=== PATIENT | male | born 1940 | race African-American/Black ===

== ENCOUNTER 2017-07-29 10:48 | Emergency (ER) | payer MEDICARE ==
[2017-07-29 11:45] LABS: PTT 33.1 SEC (22.9-36.1); Prothrombin Time 15.2 SEC (12.0-14.7)
[2017-07-29 11:58] LABS: ALT (SGPT) 27 U/L (8-55); AST (SGOT) 31 U/L (5-34); Alkaline Phosphatase 60 U/L (40-150); Anion Gap 15 mmol/L (10-20); BUN (Urea Nitrogen) 36 mg/dL (8.4-25.7); Bilirubin, Total 2.1 mg/dL (0.2-1.2); Calc. Creatinine Clearance 0 mL/min (70-130); Calcium 11.3 mg/dL (7.8-10.44); Carbon Dioxide 28 mmol/L (23-31); Chloride 98 mmol/L (98-107); Estimated GFR-MDRD 65; Magnesium 2.1 mg/dL (1.6-2.6); Protein, Total 8.5 g/dL (5.8-8.1)
[2017-07-29 12:00] LABS: Troponin I Less than 0.010 ng/mL (< 0.028)
[2017-07-29 12:09] LABS: Band 1 % (5-11); Hematocrit 48.5 % (42.0-52.0); Mean Platelet Volume 9.3 fL (7.4-10.4); Neutrophil 79 % (42-75); Reactive Lymphocytes 1 % (0-10); Red Blood Cell (RBC) Count 5.06 mill/uL (4.70-6.10)
--- NOTE | 2017-07-29 12:15 | RAD ---
PORTABLE CHEST: 07/29/2017 PROVIDED CLINICAL HISTORY: Cough and weakness. COMPARISON: 02/14/2016 FINDINGS: The cardiac and mediastinal silhouette is unchanged in appearance. Changes of chronic obstructive d isease are redemonstrated. Superimposed prominence of the pulmonary interstitium, as well as bibasi lar air space disease cannot be excluded. No pleural fluid or pneumothorax is apparent. IMPRESSION: Changes of chronic obstructive disease are redemonstrated with possible bibasilar air space disease. Please correlate with concerns for pneumonia. Followup is recommended. POS: OFF
[2017-07-29] MEDS ORDERED: cefTRIAXone\\ROCEPHIN 500 MG VIAL ONE (13:27)
[2017-07-29] MEDS ORDERED: Azithromycin 500 MG in Sodium Chloride 0.9% 250 ML 250 ML IVPB SCH (13:45)
--- NOTE | 2017-07-29 16:26 | CON ---
EMERGENCY ROOM CONSULTATION NOTE DATE OF CONSULTATION: 07/29/2017 PRIMARY CARE PHYSICIAN: Marci Perez. CHIEF COMPLAINT: Cough and weakness. REASON FOR CONSULTATION: I was called to admit the patient to the hospital for pneumonia and uncontrolled atrial fibrillation. The patient is refusing admission now and is signing out against medical advice. The ER doctor is providing him with oral prescriptions and both he and I have reassured the patient that should he change his mind, he can return and we will admit him to the hospital for IV antibiotics and appropriate treatment. HISTORY OF PRESENT ILLNESS: This is a 77-year-old -Scottish male who lives by himself with a past medical history of longstanding tobacco abuse and COPD/emphysema who had pneumonia and influenza vaccinations done by home health over the last 1-2 weeks. Within a couple of days, he started feeling bad and having cough and he has become weak. No appetite, not eating anything and eventually the patient had a neighbor bring him to the emergency room. In the ER, he was found to be in atrial fibrillation, which was diagnosed on his last admission in 2015, but with rapid ventricular rate up into 170s. He was also noted on chest x-ray to have bilateral interstitial infiltrates consistent with pneumonia as well as an elevated white blood cell count. The patient has not noticed any fevers or chills and has not had any vomiting. PAST MEDICAL HISTORY: 1. Hypertension. 2. Emphysema. 3. Chronic kidney disease, stage 3. 4. Tobacco abuse. 5. Marijuana use. 6. Alcohol abuse. PAST SURGICAL HISTORY: Surgical excision of large colonic adenoma. SOCIAL HISTORY: Patient is retired, lives in [place], [place] by himself. He does have a stepdaughter and says he has an older brother who lives in [place] and then a stepdaughter who lives nearby in [place], the daughter of his who is his medical decision maker should he be incapacitated. The patient smokes up to a half a pack of cigarettes per day and has smoked for more than 50 years. He uses marijuana about every other day or at least 2-3 times a week when he is not having appetite, he will use that to make him hungry. He also drinks about a pint of liquor about 3 times a week. FAMILY HISTORY: Brother was diagnosed with colon cancer in his 70s. ALLERGIES: No known drug allergies. CURRENT MEDICATIONS: 1. Amlodipine 5 mg daily. 2. Hydrochlorothiazide 25 mg daily. 3. Doxazosin 10 mg daily. 4. Protonix 40 mg daily. He was previously on amiodarone last year, but is no longer on that. REVIEW OF SYSTEMS: CONSTITUTIONAL: No fevers, no chills. He has had generalized weakness. EYES: No double vision or blurred vision. HEENT: He has had congestion, drainage from his nose and some sore throat. CARDIOVASCULAR: No chest pain. He has not noticed any palpitations. PULMONARY: He has no coughing, wheezing or shortness of breath. GASTROINTESTINAL: No abdominal pain, no nausea or vomiting. He does have anorexia. No diarrhea or constipation. GENITOURINARY: No dysuria or hematuria. MUSCULOSKELETAL: No muscle aches or joint pains. NEUROLOGIC: No numbness, tingling or focal weakness. PHYSICAL EXAMINATION: VITAL SIGNS: Initially, blood pressure 85/64, after fluid boluses up to 128/70 , pulse was 156, on initial presentation was running about 100 when I saw him and respirations initially 28 down to 18 when I saw him, his O2 sat was initially 85% on room air. It came up to 96% on 2 liters at the time I saw him. GENERAL: This is a thin, cachectic-appearing -Scottish male who is alert and oriented x3. HEENT: Pupils equal, round, and reactive to light. Oropharynx is little bit dry, but clear, without erythema or exudate. NECK: Supple, no lymphadenopathy, no thyroid nodules or enlargement, no JVD. HEART: Irregularly irregular rhythm with just minimally tachycardic rate currently. No murmurs. LUNGS: The patient does have some poor air movement and hyperexpansion of his lungs bilaterally consistent with emphysema. He does have a few rhonchi down in bilateral lung bases. No significant increased work of breathing currently. ABDOMEN: Soft, nontender to palpation, normoactive bowel sounds, no hepatosplenomegaly or other masses. EXTREMITIES: No clubbing, cyanosis or edema. SKIN: Without rashes or other lesions. NEUROLOGIC: He has intact cranial nerves with no facial droop. He does have intact reflexes in all extremities. Strength is equal in all extremities. PSYCHIATRIC: Alert, oriented x3, normal mood and affect. LABORATORY DATA: White blood cell count of 15,000 with neutrophils at 79%. Coagulation profile is normal. Complete metabolic panel is notable for a BUN of 36, creatinine of 1.29, which is little above his baseline and calcium of 11.3 and total bilirubin of 2.1. His cardiac marker set is negative x1. Thyroid testing was normal. Chest x-ray: I did review the chest x-ray done in the emergency room along with the radiologist's report. There are chronic obstructive disease changes bilaterally which was present on previous films, but also with bibasilar airspace disease consistent with possible bilateral pneumonia. EKG did show atrial fibrillation with rapid ventricular rate. ASSESSMENT: 1. Pneumonia, community acquired. The chest x-ray looks more of an atypical walking sort of pneumonia; however, given the patient's elevated white count, his age and the fact that he came in significantly dehydrated. The patient needs to have his pneumonia treated as inpatient with IV antibiotics and IV fluids. Patient is refusing to do that at this time. For now, he will be given oral antibiotics and if he gets worse, he has been urged to return to the emergency room immediately. 2. Atrial fibrillation with rapid ventricular rate. This actually improved with IV fluids. He likely has chronic atrial fibrillation and showed up during one of his visits last year. He is no longer on amiodarone; however, the rapid rate is responding to IV fluids, we recommended treatment with diltiazem if he were to stay in the hospital. 3. CODE STATUS: The patient reports that he is a FULL CODE that if he were medically Incapacitated, he states that his stepdaughter, Deborah Romnao, would make medical decisions for him. The patient is signing out against medical advice. He has been urged to stay with the risk of getting severely ill or even dying if he leaves. He expressed understanding of this. He has also been reassured that if he changes his mind that he is welcome to come back to the emergency room, we will be happy to take care of him and put him in the hospital for proper treatment. PEDRO
== END 2017-07-29 15:39 | disposition left against medical advice (07) ==
LOC: ERS 10:48
DX: I48.91 Unspecified atrial fibrillation (principal); J18.9 Pneumonia, unspecified organism; I10 Essential (primary) hypertension; F17.210 Nicotine dependence, cigarettes, uncomplicated
CPT/HCPCS: 36415; 71010; 80053; 82553; 83735; 84443; 84484; 85025; 85610; 85730; 87040; 93005; 96361; 96365; 96375; J0456; J0696; J7050

== ENCOUNTER 2017-08-05 18:43 | Emergency (ER) | payer MEDICARE ==
[2017-08-05 20:13] LABS: #Basophils 0.1 thou/uL (0.0-0.2); #Eosinphils 0.2 thou/uL (0.0-0.7); #Monocytes 0.4 thou/uL (0.11-0.59); #Neutrophils 2.5 thou/uL (1.40-6.50); %Basophils 1.5 % (0.0-1.0); %Eosinophils 3.9 % (0.0-10.0); %Lymphocytes 38.7 % (21.0-51.0); %Monocytes 8.1 % (0.0-10.0); Hematocrit 43.1 % (42.0-52.0); Mean Platelet Volume 7.6 fL (7.4-10.4); Red Blood Cell (RBC) Count 4.41 mill/uL (4.70-6.10); White Blood Cell (WBC) Count 5.2 thou/uL (4.8-10.8)
[2017-08-05 20:32] LABS: Lactic Acid - Sepsis 1.4 mmol/L (0.5-2.2)
[2017-08-05 20:36] LABS: ALT (SGPT) 28 U/L (8-55); AST (SGOT) 34 U/L (5-34); Alkaline Phosphatase 44 U/L (40-150); Anion Gap 11 mmol/L (10-20); BUN (Urea Nitrogen) 14 mg/dL (8.4-25.7); Bilirubin, Total 0.6 mg/dL (0.2-1.2); CK (CPK) 61 U/L (30-200); Calc. Creatinine Clearance 0 mL/min (70-130); Calcium 10.4 mg/dL (7.8-10.44); Carbon Dioxide 24 mmol/L (23-31); Chloride 105 mmol/L (98-107); Estimated GFR-MDRD 67; Globulin 4.2 g/dL (2.4-3.5); Protein, Total 7.5 g/dL (5.8-8.1)
[2017-08-05 20:39] LABS: Troponin I Less than 0.010 ng/mL (< 0.028)
--- NOTE | 2017-08-05 22:37 | RAD ---
PORTABLE CHEST: 08/05/17 HISTORY: Hypotension. COMPARISON: 07/29/17. There is a nodular density in the left lung base near the CP angle which may be new when compared to the prior study. There is surrounding costochondral calcification at this location. This could repres ent a focal area of atelectasis or infiltrate. Lungs are otherwise clear. No evidence of vascular congestion or edema. Heart size is normal. IMPRESSION: Questioned new nodular density in the left lung base. This could represent focal atelectasis. If ther e is concern of pneumonia, recommend short term followup with PA and lateral views of the chest. POS: [facility]
== END 2017-08-05 21:24 | disposition home or self-care (01) ==
LOC: ERS 18:43
DX: I95.89 Other hypotension (principal); I10 Essential (primary) hypertension; F17.210 Nicotine dependence, cigarettes, uncomplicated; Z71.6 Tobacco abuse counseling; Z79.899 Other long term (current) drug therapy
CPT/HCPCS: 71010; 80053; 82553; 83605; 83735; 84484; 85025; 93005; 96360; 99406

== ENCOUNTER 2018-08-27 10:42 | Emergency (ER) | payer MEDICARE ==
--- NOTE | 2018-08-27 12:08 | CT ---
CT HEAD NONCONTRAST: HISTORY: Headache. Dizziness. COMPARISON: 11/06/2009 FINDINGS: There is no evidence of acute intracranial hemorrhage or infarct. Mild diffuse cortical atrophy and chronic ischemic small vessel disease are apparent. There is no mass effect or shift of midline stru ctures. Very mild mucosal thickening of ethmoid air cells. IMPRESSION: No acute intracranial abnormalities are demonstrated. POS: [facility]
[2018-08-27] MEDS ORDERED: HYDROcodone/Acetaminophen 5/325 mg Tablet ONE (12:13)
--- NOTE | 2018-08-29 13:43 | EKG ---
Test Reason : DIZZINESS Blood Pressure : / mmHG Vent. Rate : 109 BPM Atrial Rate : 109 BPM P-R Int : 156 ms QRS Dur : 074 ms QT Int : 320 ms P-R-T Axes : 078 068 053 degrees QTc Int : 430 ms Sinus tachycardia with Premature supraventricular complexes Low voltage QRS Junctional ST depression, probably normal Borderline ECG Confirmed by TERESITA WISE ([id number]), social media editor DALLIN VARGAS ([id number]) on 08/29/2018 1:42:55 PM Referred By: Confirmed By:TERESITA WISE
== END 2018-08-27 12:42 | disposition home or self-care (01) ==
LOC: ERS 10:42
DX: J32.9 Chronic sinusitis, unspecified (principal); I10 Essential (primary) hypertension; F17.210 Nicotine dependence, cigarettes, uncomplicated; Z79.899 Other long term (current) drug therapy
CPT/HCPCS: 70450; 93005

== ENCOUNTER 2018-09-04 14:14 | Observation (INO) | payer MEDICARE ==
[2018-09-04 15:00] LABS: #Basophils 0.1 thou/uL (0.0-0.2); #Eosinphils 0.4 thou/uL (0.0-0.7); #Lymphocytes 1.4 thou/uL (1.20-3.40); #Monocytes 0.6 thou/uL (0.11-0.59); #Neutrophils 2.5 thou/uL (1.40-6.50); %Basophils 2.3 % (0.0-1.0); %Eosinophils 8.5 % (0.0-10.0); %Lymphocytes 28.6 % (21.0-51.0); %Monocytes 11.2 % (0.0-10.0); %Neutrophils 49.4 % (42.0-75.0); Mean Corpuscular HGB CONC 31.8 g/dL (32.0-36.0); Mean Corpuscular Hemoglobin 30.5 pg (27.0-31.0); Mean Corpuscular Volume 95.7 fL (78.0-98.0); Mean Platelet Volume 8.9 fL (7.4-10.4); Platelet Count 181 thou/uL (130-400); RBC Distribution Width 12.8 % (11.5-14.5); Red Blood Cell (RBC) Count 4.61 mill/uL (4.70-6.10)
[2018-09-04] MEDS ORDERED: Metoprolol Tartrate 5 MG/5 ML VIAL ONE (15:06)
[2018-09-04 15:26] LABS: ALT (SGPT) 12 U/L (8-55); AST (SGOT) 22 U/L (5-34); Albumin 3.6 g/dL (3.4-4.8); Alkaline Phosphatase 53 U/L (40-150); Anion Gap 9 mmol/L (10-20); BUN (Urea Nitrogen) 9 mg/dL (8.4-25.7); Bilirubin, Total 0.4 mg/dL (0.2-1.2); CK (CPK) 130 U/L (30-200); Calc. Creatinine Clearance 0 mL/min (70-130); Calcium 10.5 mg/dL (7.8-10.44); Carbon Dioxide 28 mmol/L (23-31); Chloride 108 mmol/L (98-107); Estimated GFR-MDRD 73; Globulin 3.1 g/dL (2.4-3.5); Glucose 139 mg/dL (83-110); Potassium 3.7 mmol/L (3.5-5.1); Protein, Total 6.7 g/dL (5.8-8.1); Sodium 141 mmol/L (136-145)
--- NOTE | 2018-09-04 15:31 | RAD ---
CHEST ONE VIEW: HISTORY: Chest pain. Irregular heartbeat. COMPARISON: 08/05/2017 FINDINGS: The lungs are hyperinflated. No focal confluent air space consolidation, pneumothorax, or effusion. The cardiac silhouette and mediastinal contours are within normal limits. No acute osseous abnormali ty. IMPRESSION: Mild lung hyperinflation, suggesting obstructing pulmonary disease. No acute intrathoracic abnormali ty. POS: [facility]
[2018-09-04] MEDS ORDERED: Acetaminophen 500 MG TAB PO PRN (17:44)
[2018-09-04] MEDS ORDERED: Ondansetron PF 4 MG/2 ML Vial IVP PRN (17:44)
[2018-09-04] MEDS ORDERED: Ondansetron ODT 4 MG TAB PO PRN (17:44)
[2018-09-04] MEDS ORDERED: hydrALAZINE 20 MG/ML VIAL SLOW IVP PRN (17:44)
[2018-09-04 18:08] LABS: Troponin I 0.027 ng/mL (< 0.028)
[2018-09-04] MEDS: Sodium Chloride 0.9% 1,000 ML IV SCH (18:16)
[2018-09-04] MEDS: Famotidine 20 MG TAB PO SCH (20:07)
[2018-09-04] MEDS ORDERED: Metoprolol Tartrate 25 MG TAB PO SCH (21:00)
[2018-09-04 21:25] LABS: Troponin I 0.037 ng/mL (< 0.028)
--- NOTE | 2018-09-05 01:01 | HP ---
PRIMARY CARE PROVIDER: Dr. Rossi Meyer at [facility] in [place], [place]. CHIEF COMPLAINT: Headache and dizziness. HISTORY OF PRESENT ILLNESS: This is an 78-year-old male, who initially presented to [facility] Emergency Department complaining of persistent headache with associated dizziness and lightheadedness over the last week prior to this evaluation. The patient was apparently evaluated in the emergency room on 08/27/2018, and diagnosed with sinusitis, placed on Zithromax and tramadol. The patient states he has been completing his prescription antibiotics, but has persistent headache and fluttering sensation on the back portion of his head as well as palpitations. The patient denied any magaly loss of consciousness, trauma injury, documented fever or chills. The patient states he has had a history of palpitations in the past and was previously treated with amiodarone, however, is not on the medication currently. The patient denied any unilateral weakness, visual change, prominent cough, hemoptysis, or hematochezia. In the emergency room, the patient underwent general evaluation with EKG evaluation showing atrial flutter with variable AV block with heart rates in the 140s. The patient received IV metoprolol with overall improvement in heart rate. The patient was transferred to the observation unit for further evaluation. PAST MEDICAL HISTORY: 1. Hypertension. 2. Tobacco abuse. 3. Marijuana use. 4. History of upper GI bleed with esophagitis. 5. Chronic kidney disease stage 3. 6. History of alcohol abuse. 7. Benign prostatic hyperplasia. 8. Paroxysmal atrial fibrillation. PAST SURGICAL HISTORY: Status post EGD. CURRENT MEDICATIONS: 1. Doxazosin 1 mg p.o. daily. 2. Tramadol 50 mg p.o. q.4-6 hours p.r.n. 3. Protonix 40 mg p.o. daily. 4. Zithromax 250 mg p.o. daily. ALLERGIES: NO KNOWN DRUG ALLERGIES. FAMILY HISTORY: Brother with colon cancer diagnosed in his 70s. SOCIAL HISTORY: The patient resides in [place], [place]. Retired. Smokes up to half a pack of cigarettes daily. Marijuana use intermittently. Alcohol 3 to 5 times per week. REVIEW OF SYSTEMS: CONSTITUTIONAL: Negative for weight loss or gain, ability to conduct usual activities. SKIN: Negative for rash, itching. EYES: Negative for double vision, pain. ENT/MOUTH: Negative for nose bleeding, neck stiffness, pain, tenderness. CARDIOVASCULAR: Negative for palpitations, dyspnea on exertion, orthopnea. RESPIRATORY: Negative for shortness of breath, wheezing, cough, hemoptysis, fever or night sweats. GASTROINTESTINAL: Negative for poor appetite, abdominal pain, heartburn, nausea, vomiting, constipation, or diarrhea. GENITOURINARY: Negative for urgency, frequency, dysuria, nocturia. MUSCULOSKELETAL: Negative for pain, swelling. NEUROLOGIC/PSYCHIATRIC: Negative for anxiety, depression. ALLERGY/IMMUNOLOGIC: Negative for skin rash, bleeding tendency. Otherwise, negative except as stated per HPI. PHYSICAL EXAMINATION: VITAL SIGNS: In the emergency room, blood pressure 142/100, pulse 130, respiratory rate 16, temperature 99.1 degrees Fahrenheit, O2 saturation 100% on room air. GENERAL APPEARANCE: This is an 78-year-old male, alert and oriented x3, thin, responsive, in no acute distress. HEENT: Pupils are equal, round, and reactive to light and accommodation. Extraocular muscles are intact. No scleral icterus. No conjunctival injection. Nares patent. OP is clear. Teeth in poor repair. NECK: Supple. No cervical adenopathy. No thyromegaly. No carotid bruits. No JVD appreciated. Cervical spine with full active and passive range of motion. No meningeal signs noted. CHEST: Diminished breath sounds in the bases bilaterally. CARDIOVASCULAR: S1 and S2 with irregular rate and rhythm. Distant heart sounds noted. ABDOMEN: Scaphoid, nontender, and nondistended. Bowel sounds are positive in all 4 quadrants. There is no hepatosplenomegaly. No abdominal bruits. No rebound or guarding appreciated. EXTREMITIES: Generalized muscle atrophy. No asymmetric edema appreciated. Pulses are palpable distally at the dorsalis pedis, posterior tibial, and popliteal arteries bilaterally. Capillary refill is less than 2 seconds. NEUROLOGIC: Cranial nerves 2 through 12 are grossly intact. No focal or lateralizing signs appreciated. PERTINENT LAB AND X-RAY FINDINGS: Sodium 141, potassium 3.7, chloride 108, CO2 of 28, BUN 9, creatinine 1.17, estimated GFR of 73, glucose 139, calcium 10.5. LFTs within normal limits. Troponin I negative x2. CBC showed white blood cell count 5.0, hemoglobin 14, hematocrit 44, and platelet count 181 with normal differential. Portable chest x-ray dated 09/04/2018, showed mild hyperinflation on bilateral lung fraser consistent with obstructive lung disease. No acute infiltrate identified. CT of the brain without contrast dated 08/27/2018, showed no acute intracranial process. EKG dated 09/04/2018, by my interpretation shows atrial flutter with heart rates in the 140s. Normal R-wave progression noted in the precordial leads. Normal axis. Low voltage QRS complex noted. ASSESSMENT AND PLAN: 1. Atrial flutter with rapid ventricular response. The patient will be observed on the telemetry unit. We will continue metoprolol 25 mg p.o. b.i.d. Check 2D transthoracic echocardiogram in the a.m. Check magnesium and TSH level in the a.m. Consider Cardiology evaluation if patient has recurrent rapid ventricular response. We will continue rate control strategy and monitor clinically. 2. Hypertension, labile. We will continue to monitor serial blood pressures. Start metoprolol 25 mg p.o. b.i.d. Hydralazine p.r.n. systolic greater than or equal to 170. Continue to titrate blood pressure regimen to optimal response. 3. Tobacco abuse. We will offer smoking cessation resources prior to discharge. 4. Chronic kidney disease stage 2. Avoid nephrotoxic agents and contrast media. Limit contrast exposure. Repeat creatinine in the a.m. 5. Prophylaxis. Sequential compression devices while in bed. Pepcid 20 mg p.o. b.i.d. CODE STATUS: Full. Surrogate medical decision maker not identified. Job ID: [id number]
[2018-09-05] MEDS: Sodium Chloride 0.9% 1,000 ML IV SCH (04:18)
[2018-09-05 05:40] LABS: Anion Gap 7 mmol/L (10-20); BUN (Urea Nitrogen) 7 mg/dL (8.4-25.7); Calc. Creatinine Clearance 53 mL/min (70-130); Calcium 9.7 mg/dL (7.8-10.44); Carbon Dioxide 26 mmol/L (23-31); Chloride 110 mmol/L (98-107); Estimated GFR-MDRD Greater than 90; Glucose 66 mg/dL (83-110); Magnesium 1.7 mg/dL (1.6-2.6); Potassium 3.4 mmol/L (3.5-5.1); Sodium 140 mmol/L (136-145)
[2018-09-05 05:42] LABS: Band 1 % (5-11); Eosinophils 10 % (0-10); Hemoglobin 13.2 g/dL (14.0-18.0); Lymphocytes 34 % (21-51); MDiff Complete? YES; Mean Corpuscular HGB CONC 32.5 g/dL (32.0-36.0); Mean Corpuscular Hemoglobin 31.4 pg (27.0-31.0); Mean Corpuscular Volume 96.7 fL (78.0-98.0); Mean Platelet Volume 9.5 fL (7.4-10.4); Monocytes 11 % (0-10); Neutrophil 40 % (42-75); PLT Morphology Comment Appears Adequate; Platelet Count 139 thou/uL (130-400); RBC Distribution Width 12.7 % (11.5-14.5); Reactive Lymphocytes 3 % (0-10); White Blood Cell (WBC) Count 5.1 thou/uL (4.8-10.8)
[2018-09-05] MEDS ORDERED: Metoprolol Tartrate 25 MG TAB PO SCH (07:44)
--- NOTE | 2018-09-05 08:00 | PDOC.PN ---
- Subjective Encounter Start Date: 09/05/18 Encounter Start Time: 08:00 Subjective: feels well.denies any chest pain/SOB/palpitations - Objective Resuscitation Status - Order Detail: 09/04/18 17:37 Resuscitation Status Routine Resuscitation Status: FULL: Full Resuscitation MAR Reviewed: Yes Vital Signs & Weight: Vital Signs (12 hours) Temp Pulse Resp BP Pulse Ox 09/05/18 04:19 98.4 F 48 L 14 165/79 H 97 09/04/18 23:38 98.5 F 49 L 16 177/81 H 99 09/04/18 20:11 64 16 164/71 H 96 Weight Weight 126 lb 14.4 oz I&O: 09/04/18 09/05/18 09/06/18 06:59 06:59 06:59 Intake Total 1800 Output Total 400 Balance 1400 Result Diagrams: 09/05/18 04:57 09/05/18 04:57 Radiology Reviewed by me: Yes (ECHO EF 45%.AR) Phys Exam - Physical Examination Constitutional: NAD HEENT: PERRLA, moist MMs, sclera anicteric, oral pharynx no lesions Neck: no nodes, no JVD, supple, full ROM Respiratory: no wheezing, no rales, no rhonchi, clear to auscultation bilateral Cardiovascular: RRR, no significant murmur, no rub Gastrointestinal: soft, non-tender, no distention, positive bowel sounds Musculoskeletal: no edema, pulses present Neurological: non-focal, normal sensation, moves all 4 limbs Psychiatric: normal affect, A&O x 3 Skin: no rash Dx/Plan (1) Atrial flutter with rapid ventricular response Code(s): I48.92 - UNSPECIFIED ATRIAL FLUTTER Status: Acute (2) Uncontrolled hypertension Code(s): I10 - ESSENTIAL (PRIMARY) HYPERTENSION Status: Acute (3) BPH (benign prostatic hyperplasia) Code(s): N40.0 - BENIGN PROSTATIC HYPERPLASIA WITHOUT LOWER URINRY TRACT SYMP Status: Chronic (4) Hypertension Code(s): I10 - ESSENTIAL (PRIMARY) HYPERTENSION Status: Chronic (5) Protein-calorie malnutrition, moderate Code(s): E44.0 - MODERATE PROTEIN-CALORIE MALNUTRITION Status: Chronic (6) h/o helicobacter pylori Status: Chronic Comment: per EGD in 2016 with unknown Rx status - Plan DVT proph w/SCDs Add Lisinopril reduce BB given bradycardia.restart cardura -: Will dwain need EP consultaion.? 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 -: pt did not have any follow up since then & is unaware of diagnosis * .will need referral to Oncology and GI as an OP.denies any weight loss,rectal bleed,abd pain or fever//sweats * Hd stable for now * will need to stay till cardiology recs noted * not safe for DC yet w high BP and bradycardia * am labs Review of Systems - Review of Systems Constitutional: negative: fever, chills, sweats, weakness, malaise, other ENT: negative: Ear Pain, Ear Discharge, Nose Pain, Nose Discharge, Nose Congestion, Mouth Pain, Mouth Swelling, Throat Pain, Throat Swelling, Other Respiratory: negative: Cough, Dry, Shortness of Breath, Hemoptysis, SOB with Excertion, Pleuritic Pain, Sputum, Wheezing Cardiovascular: negative: chest pain, palpitations, orthopnea, paroxysmal nocturnal dyspnea, edema, light headedness, other Gastrointestinal: negative: Nausea, Vomiting, Abdominal Pain, Diarrhea, Constipation, Melena, Hematochezia, Other Genitourinary: negative: Dysuria, Frequency, Incontinence, Hematuria, Retention , Other Musculoskeletal: negative: Neck Pain, Shoulder Pain, Arm Pain, Back Pain, Hand Pain, Leg Pain, Foot Pain, Other Neurological: negative: Weakness, Numbness, Incoordination, Change in Speech, Confusion, Seizures, Other - Medications/Allergies Allergies/Adverse Reactions: Allergies Allergy/AdvReac Type Severity Reaction Status Date / Time No Known Drug Allergies Allergy Verified 02/14/16 22:44 Medications: Current Medications Acetaminophen (Tylenol) 1,000 mg PO Q6H PRN PRN Reason: Mild Pain (1-3) Aspirin (Aspirin) 325 mg PO DAILY [facility] Famotidine (Pepcid) 20 mg PO BID [facility] Last Admin: 09/04/18 20:07 Dose: 20 mg Hydralazine HCl (Apresoline) 10 mg SLOW IVP Q4H PRN PRN Reason: SBP > 180 and HR < 70 Metoprolol Tartrate (Lopressor) 12.5 mg PO BID [facility] Ondansetron HCl (Zofran Odt) 4 mg PO Q6H PRN PRN Reason: Nausea/Vomiting Ondansetron HCl (Zofran) 4 mg IVP Q6H PRN PRN Reason: Nausea/Vomiting Sodium Chloride (Flush - Normal Saline) 10 ml IVF Q12HR KIP Sodium Chloride (Flush - Normal Saline) 10 ml IVF PRN PRN PRN Reason: Saline Flush
[2018-09-05] MEDS: Aspirin 325 MG TAB PO SCH (09:06)
[2018-09-05] MEDS: Famotidine 20 MG TAB PO SCH (09:09)
[2018-09-05] MEDS: Metoprolol Tartrate 25 MG TAB PO SCH ×2 (09:37→19:30)
[2018-09-05] MEDS ORDERED: traMADol HCl 50 MG TAB PO PRN (14:53)
[2018-09-05] MEDS ORDERED: Doxazosin Mesylate 1 MG TAB PO SCH (14:54)
[2018-09-05] MEDS ORDERED: Potassium Chloride 20 MEQ TAB PO SCH (15:00)
[2018-09-05] MEDS ORDERED: Lisinopril 10 MG TAB PO SCH (15:00)
[2018-09-05 15:58] VITALS: BMI 18.1
[2018-09-05] MEDS: Lisinopril 5 MG TAB PO SCH (19:28)
[2018-09-05] MEDS ORDERED: Mirtazapine 15 MG TAB PO SCH (21:00)
[2018-09-05] MEDS ORDERED: Enoxaparin Sodium 40 MG/0.4 ML SYRINGE SC SCH (21:15)
[2018-09-05] MEDS ORDERED: Enoxaparin Sodium 60 MG/0.6 ML SYRINGE SC SCH (21:45)
--- NOTE | 2018-09-06 00:59 | CON ---
DATE OF CONSULTATION: HISTORY OF PRESENT ILLNESS: Riky spivey is a pleasant 78-year-old black male, whom I initially evaluated in February 2016. He underwent left hemicolectomy with splenic flexure mobilization and intraoperative colonoscopy for large tubular villous adenoma. Two days after surgery, he was noted to be in atrial fibrillation and was transferred to Telemetry. He was given metoprolol 5 mg IV and three or four hours later converted to sinus rhythm. He then again had recurrence of atrial fibrillation and was given intravenous digoxin to control the rate and then placed on IV amiodarone protocol. He converted back to sinus rhythm. He was not anticoagulated due to his postop status. He took p.o. amiodarone for 1 month, and he was seen in the office in April 2016, remained in sinus rhythm. He was again seen in June 2016, remained in sinus rhythm. Over the last several weeks, he has noted increased dizziness and lightheadedness and felt a feeling of fluttering sensation in the back of his head and chest palpitations. He denies any chest discomfort or shortness of breath. He came to the emergency room for evaluation and was found to be in atrial flutter with variable blocks, heart rates in 140s. He was given IV metoprolol with improvement in his heart rate and then converted to sinus rhythm. On the monitor, he has developed deep T-wave inversions, which were not present initially, and an EKG to further evaluate this, is pending. PAST MEDICAL HISTORY: Hypertension, chronic kidney disease, tobacco abuse, marijuana use, history of upper GI bleed with esophagitis, on chronic PPI, history of ETOH abuse, benign prostatic hypertrophy, episode of atrial fibrillation in February 2016. OPERATIONS: Left hemicolectomy. MEDICATIONS: 1. Doxazosin 1 mg daily. 2. Mirtazapine 15 mg at bedtime. 3. Tramadol 50 mg q.4 hours p.r.n. 4. Protonix 40 b.i.d. ALLERGIES: NONE. SOCIAL HISTORY: He smokes 1/2 pack of cigarettes per day. Also uses marijuana and drinks 4 to 5 beers per day. FAMILY HISTORY: Negative for coronary artery disease. REVIEW OF SYSTEMS: A 12-point review of systems is, otherwise, unremarkable. PHYSICAL EXAMINATION: VITAL SIGNS: Blood pressure 186/89, pulse of 64. HEENT: PERRL. NECK: Supple. CHEST: Clear. CARDIAC: S1 and S2 normal without any S3, S4, or murmurs. ABDOMEN: Positive bowel sounds without tenderness or organomegaly. EXTREMITIES: Revealed no clubbing, cyanosis, or edema. NEUROLOGICAL: Grossly intact. LABORATORY DATA: EKG on admission revealed atrial flutter with low voltage QRS. On the monitor, he has since developed deeply inverted T-waves and repeat EKG is pending. Echocardiogram has apparently not transferred to [facility]. Overall, that showed ejection fraction of 45% to 50% with moderate mitral regurgitation, moderate to severe aortic regurgitation, mild tricuspid regurgitation, and mild pulmonic insufficiency. Hemoglobin 13.2, hematocrit 40.6, white count 5100, platelets 139,000. Sodium 140, potassium 3.4, chloride 110, carbon dioxide 26, BUN 7, creatinine 0.90. Troponin I is up to 0.037. TSH is normal. IMPRESSION: 1. Atrial flutter, which apparently converted with intravenous beta wing. 2. History of atrial fibrillation in February 2016, converted with IV amiodarone after he underwent left hemicolectomy. He was on p.o. amiodarone for a month and then this was stopped and he has continued to remain in sinus rhythm until this episode. 3. Hypertension, which appears to be poorly controlled. 4. Tobacco abuse. 5. History of marijuana use. 6. History of ETOH abuse. 7. History of gastrointestinal bleed with esophagitis on chronic proton pump inhibitor treatment. 8. Benign prostatic hypertrophy. PLAN: The patient will be started on Lovenox 1 mg/kg b.i.d. with have any episodes of atrial flutter. With his T-wave changes, he will undergo adenosine Cardiolite testing. We also discussed probably his best option for this would be to undergo radiofrequency ablation. However, I am not certain as to the availability of electrophysiology over the next several days. Job ID: [id number] [facility]
[2018-09-06 08:21] VITALS: BP 164/77; TEMP 98.1
[2018-09-06] MEDS ORDERED: Doxazosin Mesylate 1 MG TAB PO SCH (09:00)
[2018-09-06] MEDS ORDERED: Enoxaparin Sodium 60 MG/0.6 ML SYRINGE SC SCH (09:00)
[2018-09-06] MEDS: Aspirin 325 MG TAB PO SCH (09:30)
[2018-09-06] MEDS: Lisinopril 5 MG TAB PO SCH (09:31)
[2018-09-06] MEDS: Metoprolol Tartrate 25 MG TAB PO SCH (09:31)
--- NOTE | 2018-09-06 15:55 | PDOC.PN ---
- Subjective Encounter Start Date: 09/06/18 Encounter Start Time: 15:55 Subjective: wants to go home.no chest pain/SOB - Objective Resuscitation Status - Order Detail: 09/04/18 17:37 Resuscitation Status Routine Resuscitation Status: FULL: Full Resuscitation MAR Reviewed: Yes Vital Signs & Weight: Vital Signs (12 hours) Temp Pulse Resp BP Pulse Ox 09/06/18 07:43 98.1 F 52 L 14 164/77 H 99 Weight Admit Weight 126 lb 14.4 oz Weight 122 lb 14.4 oz I&O: 09/05/18 09/06/18 09/07/18 06:59 06:59 06:59 Intake Total 1800 2477 Output Total 400 500 Balance 1400 1977 Result Diagrams: 09/05/18 04:57 09/05/18 04:57 Phys Exam - Physical Examination Constitutional: NAD HEENT: PERRLA, moist MMs, sclera anicteric, oral pharynx no lesions Neck: no nodes, no JVD, supple, full ROM Respiratory: no wheezing, no rales, no rhonchi, clear to auscultation bilateral Cardiovascular: RRR, no significant murmur Gastrointestinal: soft, non-tender, no distention, positive bowel sounds Musculoskeletal: no edema, pulses present Neurological: non-focal, normal sensation, moves all 4 limbs Psychiatric: normal affect, A&O x 3 Dx/Plan (1) Atrial flutter with rapid ventricular response Code(s): I48.92 - UNSPECIFIED ATRIAL FLUTTER Status: Acute (2) Uncontrolled hypertension Code(s): I10 - ESSENTIAL (PRIMARY) HYPERTENSION Status: Acute (3) BPH (benign prostatic hyperplasia) Code(s): N40.0 - BENIGN PROSTATIC HYPERPLASIA WITHOUT LOWER URINRY TRACT SYMP Status: Chronic (4) Hypertension Code(s): I10 - ESSENTIAL (PRIMARY) HYPERTENSION Status: Chronic (5) Protein-calorie malnutrition, moderate Code(s): E44.0 - MODERATE PROTEIN-CALORIE MALNUTRITION Status: Chronic (6) h/o helicobacter pylori Status: Chronic Comment: per EGD in 2016 with unknown Rx status - Plan DVT proph w/SCDs HR & BP better controlled.Cont BB,Lisinopril.on cardura -: stress test done today for ekg changes-results pending -: on Lovenox BID for a-flutter.? 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 Review of Systems - Medications/Allergies Allergies/Adverse Reactions: Allergies Allergy/AdvReac Type Severity Reaction Status Date / Time No Known Drug Allergies Allergy Verified 02/14/16 22:44 Medications: Current Medications Acetaminophen (Tylenol) 1,000 mg PO Q6H PRN PRN Reason: Mild Pain (1-3) Aspirin (Aspirin) 325 mg PO DAILY [facility] Last Admin: 09/06/18 09:30 Dose: Not Given Doxazosin Mesylate (Cardura) 1 mg PO DAILY [facility] Last Admin: 09/06/18 09:31 Dose: Not Given Enoxaparin Sodium (Lovenox) 60 mg SC 0900,2100 [facility] Last Admin: 09/06/18 09:31 Dose: Not Given Hydralazine HCl (Apresoline) 10 mg SLOW IVP Q4H PRN PRN Reason: SBP > 180 and HR < 70 Last Admin: 09/05/18 13:51 Dose: 10 mg Lisinopril (Zestril) 5 mg PO BID [facility] Last Admin: 09/06/18 09:31 Dose: Not Given Metoprolol Tartrate (Lopressor) 12.5 mg PO BID [facility] Last Admin: 09/06/18 09:31 Dose: Not Given Mirtazapine (Remeron) 15 mg PO HS [facility] Last Admin: 09/05/18 19:30 Dose: 15 mg Ondansetron HCl (Zofran Odt) 4 mg PO Q6H PRN PRN Reason: Nausea/Vomiting Ondansetron HCl (Zofran) 4 mg IVP Q6H PRN PRN Reason: Nausea/Vomiting Pantoprazole Sodium (Protonix) 40 mg PO BID [facility] Last Admin: 09/06/18 09:32 Dose: Not Given Sodium Chloride (Flush - Normal Saline) 10 ml IVF Q12HR [facility] Last Admin: 09/06/18 09:32 Dose: Not Given Sodium Chloride (Flush - Normal Saline) 10 ml IVF PRN PRN PRN Reason: Saline Flush Tramadol HCl (Ultram) 50 mg PO Q4H PRN PRN Reason: Pain
--- NOTE | 2018-09-06 17:01 | NM ---
CARDIAC SPECT: HISTORY: A 48-year-old male with atrial flutter, atrial fibrillation, and hypertension. Smoker. TECHNIQUE: A myocardial perfusion scan was performed using the single isotope one day protocol with technetium 9 9m sestamibi, and 9 millicuries was injected intravenously for the rest exam, followed by 27 millicur ies for the stress study. Pharmacologic stress with adenosine was monitored and interpreted by Dr. Kate zhou. FINDINGS: Homogeneous tracer distribution is seen in the myocardial segments on stress and rest images without fixed or reversible defects. GATED SPECT LVEF: 47%. WALL MOTION EXAM: No significant wall motion abnormalities are seen. IMPRESSION: No evidence of reversible ischemia POS: KRISH
--- NOTE | 2018-09-07 09:23 | DIS ---
DATE OF ADMISSION: 09/04/2018 DATE OF DISCHARGE: 09/06/2018 DISCHARGE DISPOSITION: The patient left against medical advice. PRIMARY CARE PHYSICIAN: Rossi Meyer. IN-HOUSE CONSULTATIONS: Cardiology, Dr. Bustamante. PROCEDURES DONE IN THE HOSPITAL: 1. Transthoracic echocardiogram, which shows EF of 45% to 50%, [id number] aortic regurgitation. 2. Nuclear medicine stress test which shows no evidence of reversible or fixed ischemia. EF is 47%. No wall motion abnormalities. DISCHARGE MEDICATIONS: The patient was not given any prescriptions as he left AMA. HOME MEDICATIONS: As follows; 1. Mirtazapine 15 mg at bedtime. 2. Doxazosin 1 mg daily. 3. Tramadol p.r.n. 4. Protonix 40 mg p.o. b.i.d. HISTORY OF PRESENTING ILLNESS: Mr. Hardy is an 78-year-old Afro[place] male with past medical history of hypertension, history of upper GI bleed with esophagitis and chronic kidney disease and paroxysmal atrial fibrillation, who presented to the ER with complaints of headache and dizziness. EKG in the ER showed atrial flutter with variable AV block and heart rate in the 140s. He was given IV metoprolol and was admitted for further evaluation. He was started on oral metoprolol by the admitting physician and echo was ordered. Please see admission history and physical for further details. HOSPITAL COURSE: The patient's heart rate was under good control and metoprolol dose was actually reduced. His blood pressure also was found to be elevated. He was started on lisinopril as well. Cardiology was consulted and Dr. Bustamante saw the patient. He recommended getting a stress test as there were some concerns with EKG changes with T-wave inversions. A stress test and echo were done. He had no evidence of acute ACS. The stress test was unremarkable. Echo showed reduced ejection fraction. The plan was to possible get an EP consultation for ablation, but the patient refused to stay in the hospital any longer. He kept asking to be discharged because he had to take care of some mail and packages at the house. I discussed and educated him to the best of my ability that he needs to be in the hospital and the risk of him leaving can cause him to have worsening arrhythmias, but I could not sway him. He left AMA. He was seen and examined prior to discharge. Please see hospitalist progress note from the date of discharge for further details. 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 I did try to find out from the patient, but it seems like he has not had any followup since then for that. At the very least, he would need a GI referral and repeat colonoscopy and followup to make sure he has not developed colonic cancer. He also had a positive H pylori at the same time found in the EGD. I could not find any documentation if it was treated or not. I did convey all of this to the patient repeatedly, who exhibited poor knowledge and understanding. I instructed him to follow up with the primary care physician with this, he left AMA. Job ID: [id number]
--- NOTE | 2018-09-10 06:12 | EKG ---
Test Reason : EKG CHANGES Blood Pressure : / mmHG Vent. Rate : 059 BPM Atrial Rate : 059 BPM P-R Int : 154 ms QRS Dur : 080 ms QT Int : 446 ms P-R-T Axes : 082 -46 083 degrees QTc Int : 441 ms Sinus bradycardia Left axis deviation Pulmonary disease pattern T wave abnormality, consider anterolateral ischemia Abnormal ECG When compared with ECG of 27-AUG-2018 10:45, Significant changes have occurred Sinus bradycardia has replaced A. Flutter from previous ECG. Confirmed by TIFFANIE ALVAREZ ([id number]) on 09/10/2018 6:12:06 AM Referred By: Bisi GUAN Confirmed By:TIFFANIE ALVAREZ
== END 2018-09-06 17:59 | disposition left against medical advice (07) ==
LOC: ERS 14:14 → 2SW 16:30
PROVIDERS: ADMIT Family Medicine; ATTEND Family Medicine
DX: I48.92 Unspecified atrial flutter (principal); I48.0 Paroxysmal atrial fibrillation; I12.9 Hypertensive chronic kidney disease with stage 1 through stage 4 chronic kidney disease, or unspecified chronic kidney disease; N18.3 Chronic kidney disease, stage 3 (moderate); F10.10 Alcohol abuse, uncomplicated; N40.0 Benign prostatic hyperplasia without lower urinary tract symptoms; F17.210 Nicotine dependence, cigarettes, uncomplicated; E44.0 Moderate protein-calorie malnutrition; Z68.1 Body mass index [BMI] 19.9 or less, adult; Z53.21 Procedure and treatment not carried out due to patient leaving prior to being seen by health care provider; Z79.899 Other long term (current) drug therapy; Z90.49 Acquired absence of other specified parts of digestive tract
CPT/HCPCS: 71045; 78452; 80048; 80053; 82550; 83735; 84443; 84484 ×2; 85007; 85025; 85027; 93005 ×2; 93017; 93306; 96361 ×2; 96372; 96374; 96375; 99285; A9500; G0378 ×2; 36415; 93010; J0360; J1650

== ENCOUNTER 2022-05-03 09:12 | Outpatient (CLI) | payer MEDICARE | END 2022-05-03 09:13 | disposition home or self-care (01) | LOC: ULT 09:12 | PROVIDERS: ATTEND Internal Medicine Nephrology | DX: N18.30 Chronic kidney disease, stage 3 unspecified (principal); Q63.1 Lobulated, fused and horseshoe kidney; N28.9 Disorder of kidney and ureter, unspecified | CPT/HCPCS: 76770 ==

== ENCOUNTER 2022-07-31 09:50 | Inpatient (IN) | payer MEDICARE, OTHER ==
[2022-07-31 12:27] LABS: #Basophils 0.1 thou/uL (0.0-0.2); #Eosinphils 0.2 thou/uL (0.0-0.7); #Lymphocytes 2.6 thou/uL (1.20-3.40); #Monocytes 1.1 thou/uL (0.11-0.59); #Neutrophils 8.1 thou/uL (1.40-6.50); %Basophils 0.5 % (0.0-1.0); %Eosinophils 1.5 % (0.0-10.0); %Lymphocytes 21.6 % (21.0-51.0); %Monocytes 9.3 % (0.0-10.0); %Neutrophils 67.2 % (42.0-75.0); Hemoglobin 6.2 g/dL (14.0-18.0); Mean Corpuscular HGB CONC 31.3 g/dL (32.0-36.0); Mean Corpuscular Hemoglobin 28.9 pg (27.0-31.0); Mean Corpuscular Volume 92.5 fl (78.0-98.0); Platelet Count 198 10x3/uL (130-400); RBC Distribution Width 15.1 % (11.5-14.5); Red Blood Cell (RBC) Count 2.15 mill/uL (4.70-6.10); White Blood Cell (WBC) Count 12.1 10x3/uL (4.8-10.8)
[2022-07-31 12:40] LABS: ALT (SGPT) 7 U/L (8-55); AST (SGOT) 13 U/L (5-34); Albumin 3.6 g/dL (3.4-4.8); Alkaline Phosphatase 40 U/L (40-110); Anion Gap 8 mmol/L (10-20); BUN (Urea Nitrogen) 47 mg/dL (8.4-25.7); Bilirubin, Total 0.3 mg/dL (0.2-1.2); Calc. Creatinine Clearance 0 mL/min (70-130); Calcium 10.1 mg/dL (7.8-10.44); Carbon Dioxide 24 mmol/L (23-31); Chloride 115 mmol/L (98-107); Estimated GFR 41; Globulin 2.6 g/dL (2.4-3.5); Glucose 103 mg/dL (83-110); Potassium 4.4 mmol/L (3.5-5.1); Protein, Total 6.2 g/dL (5.8-8.1); Sodium 143 mmol/L (136-145)
[2022-07-31] MEDS ORDERED: Pantoprazole 40 MG VIAL ONE (13:02)
[2022-07-31 13:53] LABS: Bacteria/HPF 4+ HPF (None Seen); Bilirubin Negative (Negative); Blood, Urine Negative (Negative); Clarity Clear (Clear); Glucose, Urine (Dipstick) Normal (Negative); Ketone, Urine Negative (Negative); Leukocyte 250 Leu/uL (Negative); Nitrite 2+ (Negative); Protein, Urine (Dipstick) Negative (Neg-Trace); RBC/HPF 0-3 HPF (0-3); Specific Gravity, Urine 1.016 (1.002-1.036); Squamous Epithelial 0-3 HPF (0-3); Urobilinogen Normal mg/dL (Less than 2); pH, Urine 6.5 (5.0-9.0)
[2022-07-31] MEDS ORDERED: Acetaminophen 325 MG TAB PO PRN (15:01)
[2022-07-31 15:19] LABS: INR-International Normal Ratio 1.3; PTT 36.5 sec (22.9-36.1); Prothrombin Time 16.2 sec (12.0-14.7)
[2022-07-31 16:06] VITALS: BMI 18.3
[2022-07-31] MEDS ORDERED: GoLYTELY 4,000 ml Bottle PO SCH (16:30)
[2022-07-31] MEDS: cefTRIAXone\\ROCEPHIN 1 GM in Sodium Chloride 0.9% 100 ML IVPB SCH (17:42)
[2022-07-31] MEDS: Dextrose 5 %-0.45 % NaCl 1,000 ML IV SCH (17:43)
[2022-08-01] MEDS: Dextrose 5 %-0.45 % NaCl 1,000 ML IV SCH ×3 (05:22→15:50)
[2022-08-01 07:01] LABS: ALT (SGPT) 10 U/L (8-55); AST (SGOT) 23 U/L (5-34); Albumin 3.3 g/dL (3.4-4.8); Alkaline Phosphatase 35 U/L (40-110); Anion Gap 11 mmol/L (10-20); BUN (Urea Nitrogen) 25 mg/dL (8.4-25.7); Bilirubin, Total 0.7 mg/dL (0.2-1.2); Calc. Creatinine Clearance 36 mL/min (70-130); Calcium 9.5 mg/dL (7.8-10.44); Carbon Dioxide 20 mmol/L (23-31); Chloride 117 mmol/L (98-107); Estimated GFR 55; Globulin 2.5 g/dL (2.4-3.5); Glucose 99 mg/dL (83-110); Protein, Total 5.8 g/dL (5.8-8.1); Sodium 144 mmol/L (136-145)
[2022-08-01 07:14] LABS: #Basophils 0.1 thou/uL (0.0-0.2); #Eosinphils 0.5 thou/uL (0.0-0.7); #Lymphocytes 2.1 thou/uL (1.20-3.40); #Monocytes 1.1 thou/uL (0.11-0.59); #Neutrophils 5.7 thou/uL (1.40-6.50); %Basophils 0.6 % (0.0-1.0); %Eosinophils 5.6 % (0.0-10.0); %Lymphocytes 21.7 % (21.0-51.0); %Neutrophils 60.2 % (42.0-75.0); Mean Corpuscular HGB CONC 31.5 g/dL (32.0-36.0); Mean Corpuscular Volume 92.2 fl (78.0-98.0); Mean Platelet Volume 8.6 fL (7.4-10.4); Platelet Count 181 10x3/uL (130-400); RBC Distribution Width 15.7 % (11.5-14.5); Red Blood Cell (RBC) Count 2.41 mill/uL (4.70-6.10); White Blood Cell (WBC) Count 9.5 10x3/uL (4.8-10.8)
[2022-08-01] MEDS: Cholecalciferol 1,000 UNITS (25 MCG) TAB PO SCH (08:13)
[2022-08-01] MEDS: Pantoprazole 40 MG VIAL IVP SCH (08:13)
[2022-08-01] MEDS: Doxazosin Mesylate 1 MG TAB PO SCH (08:13)
[2022-08-01] MEDS ORDERED: FLU VACC QS2022-23(65YR UP)/PF 240 MCG/0.7 ML SYRINGE IM ONE (09:00)
[2022-08-01] MEDS: cefTRIAXone\\ROCEPHIN 1 GM in Sodium Chloride 0.9% 100 ML IVPB SCH (15:50)
[2022-08-02] MEDS: Dextrose 5 %-0.45 % NaCl 1,000 ML IV SCH ×2 (06:27→20:25)
[2022-08-02] MEDS: Doxazosin Mesylate 1 MG TAB PO SCH (08:05)
[2022-08-02] MEDS: Cholecalciferol 1,000 UNITS (25 MCG) TAB PO SCH (08:05)
[2022-08-02] MEDS: Pantoprazole 40 MG VIAL IVP SCH (08:42)
[2022-08-02] MEDS ORDERED: FENTANYL 50 MCG/ML 1 ML VIAL ONE (09:32)
[2022-08-02] MEDS ORDERED: PROPOFOL 200 MG/20 ML VIAL ONE (09:38)
[2022-08-02 12:21] LABS: #Basophils 0.1 thou/uL (0.0-0.2); #Eosinphils 0.6 thou/uL (0.0-0.7); #Lymphocytes 2.1 thou/uL (1.20-3.40); #Neutrophils 4.2 thou/uL (1.40-6.50); %Eosinophils 7.3 % (0.0-10.0); %Lymphocytes 26.3 % (21.0-51.0); %Monocytes 12.3 % (0.0-10.0); %Neutrophils 53.2 % (42.0-75.0); Mean Corpuscular HGB CONC 30.6 g/dL (32.0-36.0); Mean Corpuscular Hemoglobin 29.3 pg (27.0-31.0); Mean Corpuscular Volume 95.7 fl (78.0-98.0); Mean Platelet Volume 9.6 fL (7.4-10.4); Platelet Count 171 10x3/uL (130-400); Red Blood Cell (RBC) Count 2.74 mill/uL (4.70-6.10); White Blood Cell (WBC) Count 7.9 10x3/uL (4.8-10.8)
[2022-08-02 12:40] LABS: Anion Gap 13 mmol/L (10-20); BUN (Urea Nitrogen) 10 mg/dL (8.4-25.7); Calc. Creatinine Clearance 42 mL/min (70-130); Calcium 9.5 mg/dL (7.8-10.44); Carbon Dioxide 18 mmol/L (23-31); Chloride 114 mmol/L (98-107); Estimated GFR 65; Glucose 94 mg/dL (83-110); Potassium 4.2 mmol/L (3.5-5.1); Sodium 141 mmol/L (136-145)
[2022-08-02] MEDS: cefTRIAXone\\ROCEPHIN 1 GM in Sodium Chloride 0.9% 100 ML IVPB SCH (14:28)
[2022-08-03] MEDS: Dextrose 5 %-0.45 % NaCl 1,000 ML IV SCH ×2 (02:57→08:42)
[2022-08-03 07:18] LABS: Anion Gap 9 mmol/L (10-20); BUN (Urea Nitrogen) 7 mg/dL (8.4-25.7); Calc. Creatinine Clearance 41 mL/min (70-130); Calcium 9.2 mg/dL (7.8-10.44); Carbon Dioxide 19 mmol/L (23-31); Chloride 112 mmol/L (98-107); Estimated GFR 63; Glucose 105 mg/dL (83-110); Potassium 3.4 mmol/L (3.5-5.1); Sodium 137 mmol/L (136-145)
[2022-08-03 08:07] LABS: #Basophils 0.1 thou/uL (0.0-0.2); #Eosinphils 0.6 thou/uL (0.0-0.7); #Lymphocytes 1.8 thou/uL (1.20-3.40); #Monocytes 1.1 thou/uL (0.11-0.59); #Neutrophils 8.5 thou/uL (1.40-6.50); %Basophils 0.5 % (0.0-1.0); %Eosinophils 5.2 % (0.0-10.0); %Lymphocytes 14.9 % (21.0-51.0); %Monocytes 9.2 % (0.0-10.0); %Neutrophils 70.3 % (42.0-75.0); Crenated RBC SLIGHT = 1-5 cells (100X) (None Seen); Helmet Cells SLIGHT = 2-5 cells (100X) (0-1/hpf); Hemoglobin 6.3 g/dL (14.0-18.0); MDiff Complete? YES; Mean Corpuscular Hemoglobin 28.1 pg (27.0-31.0); Mean Corpuscular Volume 96.8 fl (78.0-98.0); Mean Platelet Volume 9.3 fL (7.4-10.4); Platelet Count 178 10x3/uL (130-400); Platelet Morphology Comment Appears Adequate; RBC Distribution Width 15.6 % (11.5-14.5); Red Blood Cell (RBC) Count 2.25 mill/uL (4.70-6.10); White Blood Cell (WBC) Count 12.2 10x3/uL (4.8-10.8)
[2022-08-03] MEDS: Cholecalciferol 1,000 UNITS (25 MCG) TAB PO SCH (08:38)
[2022-08-03] MEDS: Doxazosin Mesylate 1 MG TAB PO SCH (08:38)
[2022-08-03 20:28] LABS: Hemoglobin 7.6 g/dL (14.0-18.0)
[2022-08-04 08:13] LABS: #Eosinphils 0.8 thou/uL (0.0-0.7); #Lymphocytes 1.9 thou/uL (1.20-3.40); #Monocytes 1.4 thou/uL (0.11-0.59); #Neutrophils 7.6 thou/uL (1.40-6.50); %Basophils 0.2 % (0.0-1.0); %Eosinophils 7.1 % (0.0-10.0); %Monocytes 11.6 % (0.0-10.0); %Neutrophils 65.1 % (42.0-75.0); Hemoglobin 8.4 g/dL (14.0-18.0); Mean Corpuscular HGB CONC 30.6 g/dL (32.0-36.0); Mean Corpuscular Hemoglobin 29.8 pg (27.0-31.0); Mean Corpuscular Volume 97.3 fl (78.0-98.0); Mean Platelet Volume 8.9 fL (7.4-10.4); Platelet Count 211 10x3/uL (130-400); RBC Distribution Width 17.4 % (11.5-14.5); Red Blood Cell (RBC) Count 2.81 mill/uL (4.70-6.10); White Blood Cell (WBC) Count 11.7 10x3/uL (4.8-10.8)
[2022-08-04 08:20] LABS: Anion Gap 12 mmol/L (10-20); BUN (Urea Nitrogen) 8 mg/dL (8.4-25.7); Calc. Creatinine Clearance 40 mL/min (70-130); Calcium 9.3 mg/dL (7.8-10.44); Carbon Dioxide 21 mmol/L (23-31); Chloride 113 mmol/L (98-107); Estimated GFR 61; Glucose 80 mg/dL (83-110); Potassium 3.7 mmol/L (3.5-5.1); Sodium 142 mmol/L (136-145)
[2022-08-04] MEDS: Cholecalciferol 1,000 UNITS (25 MCG) TAB PO SCH (09:56)
[2022-08-04] MEDS: Doxazosin Mesylate 1 MG TAB PO SCH (09:56)
[2022-08-04 16:38] VITALS: BP 153/76; TEMP 97.7
== END 2022-08-04 16:38 | disposition home or self-care (01) | DRG 378 ==
LOC: ERS 09:50 → T4-B 13:42
PROVIDERS: ADMIT Internal Medicine; ATTEND Internal Medicine
PROC: 0W3P8ZZ Control Bleeding in Gastrointestinal Tract, Via Natural or Artificial Opening Endoscopic (ICD-10-PCS; principal; 2022-08-02)
PROC: 0DBL8ZZ Excision of Transverse Colon, Via Natural or Artificial Opening Endoscopic (ICD-10-PCS; 2022-08-02)
PROC: 0DBK8ZZ Excision of Ascending Colon, Via Natural or Artificial Opening Endoscopic (ICD-10-PCS; 2022-08-02)
DX: K31.811 Angiodysplasia of stomach and duodenum with bleeding (principal); D62 Acute posthemorrhagic anemia; I13.0 Hypertensive heart and chronic kidney disease with heart failure and stage 1 through stage 4 chronic kidney disease, or unspecified chronic kidney disease; I42.9 Cardiomyopathy, unspecified; N39.0 Urinary tract infection, site not specified; Z20.822 Contact with and (suspected) exposure to COVID-19; I48.91 Unspecified atrial fibrillation; N18.30 Chronic kidney disease, stage 3 unspecified; K21.9 Gastro-esophageal reflux disease without esophagitis; I50.9 Heart failure, unspecified; M54.2 Cervicalgia; K57.30 Diverticulosis of large intestine without perforation or abscess without bleeding; K64.8 Other hemorrhoids; K63.5 Polyp of colon; N40.0 Benign prostatic hyperplasia without lower urinary tract symptoms; F17.210 Nicotine dependence, cigarettes, uncomplicated; D63.1 Anemia in chronic kidney disease; Z28.21 Immunization not carried out because of patient refusal; Z79.01 Long term (current) use of anticoagulants; Z79.899 Other long term (current) drug therapy
CPT/HCPCS: 36415; 36430; 70450; 72125; 80048; 80053; 81003; 81015; 85025; 85610; 85652; 85730; 86140; 86850; 86900; 86901; 87077; 87086; 87186; 88305; 93005; C9113; J0696; J2704; J3010; J3490; J7042; P9016; U0003; U0005

== ENCOUNTER 2023-07-26 10:20 | Emergency (ER) | payer MEDICARE ==
[2023-07-26 11:56] LABS: #Monocytes 0.7 thou/uL (0.11-0.59); #Neutrophils 10.4 thou/uL (1.40-6.50); %Basophils 0.2 % (0.0-1.0); %Eosinophils 0.2 % (0.0-10.0); %Monocytes 5.8 % (0.0-10.0); %Neutrophils 86.3 % (42.0-75.0); Hematocrit 41.5 % (42.0-52.0); Hemoglobin 13.7 g/dL (14.0-18.0); Mean Corpuscular Hemoglobin 30.2 pg (27.0-31.0); Mean Corpuscular Volume 91.6 fl (78.0-98.0); Mean Platelet Volume 10.8 fL (7.4-10.4); Platelet Count 219 10x3/uL (130-400); RBC Distribution Width 16.2 % (11.5-14.5); Red Blood Cell (RBC) Count 4.53 mill/uL (4.70-6.10); White Blood Cell (WBC) Count 12.1 10x3/uL (4.8-10.8)
[2023-07-26 12:22] LABS: SARS-CoV-2 NAA Rapid Test Not Detected (NotDetected)
[2023-07-26 12:23] LABS: ALT (SGPT) 24 U/L (8-55); AST (SGOT) 27 U/L (5-34); Alkaline Phosphatase 44 U/L (40-110); Anion Gap 12 mmol/L (10-20); BUN (Urea Nitrogen) 23 mg/dL (8.4-25.7); Bilirubin, Total 0.6 mg/dL (0.2-1.2); Calc. Creatinine Clearance 0 mL/min (70-130); Calcium 10.6 mg/dL (7.8-10.44); Carbon Dioxide 27 mmol/L (23-31); Chloride 107 mmol/L (98-107); Estimated GFR 45; Globulin 3.2 g/dL (2.4-3.5); Glucose 161 mg/dL (83-110); Magnesium 2.1 mg/dL (1.6-2.6); Potassium 2.9 mmol/L (3.5-5.1); Protein, Total 7.2 g/dL (5.8-8.1); Sodium 143 mmol/L (136-145)
[2023-07-26 12:27] LABS: Troponin I 0.052 ng/mL (< 0.028)
[2023-07-26] MEDS ORDERED: Potassium Chloride 20 MEQ TAB ONE (13:08)
[2023-07-26 14:26] LABS: Bilirubin Negative (Negative); Blood, Urine 1+ (Negative); Clarity Turbid (Clear); Glucose, Urine (Dipstick) Normal (Negative); Ketone, Urine Negative (Negative); Leukocyte 500 Leu/uL (Negative); Nitrite Negative (Negative); Protein, Urine (Dipstick) 50 mg/dL (Neg-Trace); Specific Gravity, Urine 1.021 (1.002-1.036); Urobilinogen Normal mg/dL (Less than 2)
[2023-07-26 14:34] LABS: Bacteria/HPF 4+ HPF (None Seen); CAUTI Indications for Culture Alt mental st,lethar; Squamous Epithelial 0-3 HPF (0-3); WBC/HPF 21-50 HPF (0-3)
[2023-07-26 14:37] LABS: Urine Culture Reflex Yes Yes
[2023-07-26] MEDS ORDERED: Aspirin Chewable 81 MG TAB ONE (15:24)
[2023-07-26] MEDS ORDERED: cefTRIAXone (ROCEPHIN) 2 GM VIAL ONE (15:25)
[2023-07-26] MEDS ORDERED: Sodium Chloride 0.9% 100 ML ONE (15:25)
[2023-07-26] MEDS ORDERED: hydrALAZINE 20 MG/ML VIAL ONE (17:14)
== END 2023-07-26 18:24 ==
LOC: ERS 10:20
DX: N39.0 Urinary tract infection, site not specified (principal); R79.89 Other specified abnormal findings of blood chemistry; R26.81 Unsteadiness on feet; R53.1 Weakness; I12.9 Hypertensive chronic kidney disease with stage 1 through stage 4 chronic kidney disease, or unspecified chronic kidney disease; N18.9 Chronic kidney disease, unspecified; F17.210 Nicotine dependence, cigarettes, uncomplicated; I48.91 Unspecified atrial fibrillation; Z20.822 Contact with and (suspected) exposure to COVID-19; Z79.899 Other long term (current) drug therapy
CPT/HCPCS: 0240U; 70450; 71045; 72125; 73564 ×2; 80053; 81001; 83605; 83735; 84484; 85025; 87077; 87086; 87186; 93005; 96365; 96375; 99285; J0360; J0696; J3490

== ENCOUNTER 2024-01-18 19:48 | Emergency (ER) | payer MEDICARE | END 2024-01-19 02:00 | disposition home or self-care (01) | LOC: ERS 19:48 | DX: N39.0 Urinary tract infection, site not specified (principal); I11.0 Hypertensive heart disease with heart failure; I50.9 Heart failure, unspecified; I24.89 Other forms of acute ischemic heart disease; R53.1 Weakness; F17.210 Nicotine dependence, cigarettes, uncomplicated | CPT/HCPCS: 71045; 71275; 80053; 81001; 82550; 83605; 83690; 83735; 83880; 84443; 84484; 85025; 85610; 85730; 87040; 87077; 87086; 87149; 87186; 93005; 96361; 96365; J0696; J3490; Q9967 ==

== ENCOUNTER 2024-03-11 10:42 | Emergency (ER) | payer MEDICARE ==
[2024-03-11 13:52] LABS: #Basophils Less than 0.03 10x3/uL (0.0-0.2); %Basophils 0.4 % (0.0-1.0); %Lymphocytes 27.5 % (21.0-51.0); %Monocytes 9.5 % (0.0-10.0); %Neutrophils 60.4 % (42.0-75.0); Hematocrit 30.5 % (42.0-52.0); Hemoglobin 10.1 g/dL (14.0-18.0); Mean Corpuscular HGB CONC 33.1 g/dL (32.0-36.0); Mean Corpuscular Hemoglobin 31.7 pg (27.0-31.0); Mean Corpuscular Volume 95.6 fL (78.0-98.0); Mean Platelet Volume 10.4 fL (7.4-10.4); Platelet Count 150 10x3/uL (130-400); RBC Distribution Width 16.7 % (11.5-14.5); Red Blood Cell (RBC) Count 3.19 mill/uL (4.70-6.10)
[2024-03-11 14:16] LABS: ALT (SGPT) 8 U/L (8-55); AST (SGOT) 16 U/L (5-34); Albumin 2.8 g/dL (3.4-4.8); Alkaline Phosphatase 34 U/L (40-110); Anion Gap 9 mmol/L (10-20); BUN (Urea Nitrogen) 9 mg/dL (8.4-25.7); Bilirubin, Total 0.4 mg/dL (0.2-1.2); Calc. Creatinine Clearance 0 mL/min (70-130); Carbon Dioxide 21 mmol/L (23-31); Chloride 112 mmol/L (98-107); Estimated GFR 62; Globulin 3.1 g/dL (2.4-3.5); Glucose 71 mg/dL (83-110); Potassium 3.8 mmol/L (3.5-5.1); Protein, Total 5.9 g/dL (5.8-8.1); Sodium 138 mmol/L (136-145)
== END 2024-03-11 15:02 | disposition home or self-care (01) ==
LOC: ERS 10:42
DX: G89.29 Other chronic pain (principal); M25.561 Pain in right knee; M25.562 Pain in left knee; I10 Essential (primary) hypertension; F17.210 Nicotine dependence, cigarettes, uncomplicated; R54 Age-related physical debility; Z74.09 Other reduced mobility; Z60.2 Problems related to living alone
CPT/HCPCS: 36415; 80053; 85025; 99283

== ENCOUNTER 2024-04-05 02:12 | Inpatient (IN) | payer MEDICARE ==
[2024-04-05] MEDS ORDERED: Magnesium 2 GM/50 ML BAG (IN WATER) ONE (02:59)
[2024-04-05] MEDS ORDERED: Azithromycin 500 MG VIAL ONE (02:59)
[2024-04-05] MEDS ORDERED: cefTRIAXone (ROCEPHIN) 2 GM VIAL ONE (02:59)
[2024-04-05] MEDS ORDERED: Ipratropium/Albuterol 3 ML NEB ONE ×5 (02:59→13:57)
[2024-04-05] MEDS ORDERED: methylPREDNISolone Sod Succ/PF 125 MG/2 ML VIAL ONE (02:59)
[2024-04-05 03:15] LABS: #Basophils 0.04 10x3/uL (0.0-0.2); %Basophils 0.4 % (0.0-1.0); %Eosinophils 1.9 % (0.0-10.0); %Lymphocytes 11.6 % (21.0-51.0); %Monocytes 9.4 % (0.0-10.0); %Neutrophils 76.3 % (42.0-75.0); Hematocrit 28.4 % (42.0-52.0); Hemoglobin 8.6 g/dL (14.0-18.0); Mean Corpuscular HGB CONC 30.3 g/dL (32.0-36.0); Mean Corpuscular Hemoglobin 30.2 pg (27.0-31.0); Mean Corpuscular Volume 99.6 fL (78.0-98.0); Platelet Count 191 10x3/uL (130-400); RBC Distribution Width 15.8 % (11.5-14.5); Red Blood Cell (RBC) Count 2.85 mill/uL (4.70-6.10)
[2024-04-05 03:34] LABS: Acetaminophen Less than 10 mcg/mL (10.0-30.0); Alcohol Less than 10.0 mg/dL (Less than 10); Salicylate Less than 8.0 mg/dL (15.0-30.0)
[2024-04-05 03:35] LABS: ALT (SGPT) 8 U/L (8-55); AST (SGOT) 16 U/L (5-34); Albumin 2.8 g/dL (3.4-4.8); Alkaline Phosphatase 30 U/L (40-110); Anion Gap 11 mmol/L (10-20); BUN (Urea Nitrogen) 18 mg/dL (8.4-25.7); Bilirubin, Total 0.3 mg/dL (0.2-1.2); Calc. Creatinine Clearance 0 mL/min (70-130); Calcium 8.8 mg/dL (7.8-10.44); Carbon Dioxide 18 mmol/L (23-31); Chloride 118 mmol/L (98-107); Estimated GFR 69; Globulin 3.1 g/dL (2.4-3.5); Glucose 97 mg/dL (83-110); Potassium 4.4 mmol/L (3.5-5.1); Protein, Total 5.9 g/dL (5.8-8.1); Sodium 143 mmol/L (136-145)
[2024-04-05 04:11] LABS: Troponin I 0.033 ng/mL (< 0.028)
[2024-04-05 04:20] LABS: Bacteria/HPF 1+ HPF (None Seen); Bilirubin Negative (Negative); Blood, Urine Negative (Negative); CAUTI Indications for Culture < 2yrs of age; Clarity Clear (Clear); Glucose, Urine (Dipstick) Normal (Negative); Ketone, Urine Negative (Negative); Leukocyte 500 Leu/uL (Negative); Nitrite 2+ (Negative); Protein, Urine (Dipstick) Negative (Neg-Trace); RBC/HPF 0-3 HPF (0-3); Specific Gravity, Urine 1.011 (1.002-1.036); Squamous Epithelial 0-3 HPF (0-3); Urobilinogen Normal mg/dL (Less than 2); WBC/HPF 21-50 HPF (0-3)
[2024-04-05 04:21] LABS: Urine Culture Reflex Yes Yes
[2024-04-05 04:44] LABS: Amphetamine Not Detected (NotDetected); Barbiturates Screen Not Detected (NotDetected); Benzodiazepine Screen Not Detected (NotDetected); Cocaine Metabolite Screen Not Detected (NotDetected); Methadone Not Detected (NotDetected); Methamphetamine Not Detected (NotDetected); Opiate Screen Not Detected (NotDetected); Oxycodone Screen Not Detected (NotDetected); Phencyclidine (PCP) Not Detected (NotDetected); THC/Cannabinoid Screen Not Detected (NotDetected); Tricyclic Screen Not Detected (NotDetected)
[2024-04-05] MEDS ORDERED: Aspirin Chewable 81 MG TAB ONE (04:59)
[2024-04-05] MEDS ORDERED: Ondansetron PF 4 MG/2 ML Vial IVP PRN (06:02)
[2024-04-05 06:41] VITALS: BMI 19.6
[2024-04-05] MEDS: Ipratropium/Albuterol 3 ML NEB EZPAP SCH (06:59)
[2024-04-05 07:30] LABS: Troponin I 0.044 ng/mL (< 0.028)
[2024-04-05 07:51] LABS: Magnesium 2.5 mg/dL (1.6-2.6)
[2024-04-05] MEDS ORDERED: Furosemide 40 MG (4 mL) VIAL ONE ×2 (08:50→14:38)
[2024-04-05] MEDS ORDERED: Pantoprazole DR 40 MG TAB ONE (08:51)
[2024-04-05] MEDS: Furosemide 40 MG (4 mL) VIAL SLOW IVP SCH (09:16)
[2024-04-05] MEDS: Pantoprazole DR 40 MG TAB PO SCH (09:16)
[2024-04-05 10:26] LABS: Troponin I 0.038 ng/mL (< 0.028)
[2024-04-05 12:31] LABS: #Basophils Less than 0.03 10x3/uL (0.0-0.2); #Eosinphils Less than 0.03 10x3/uL (0.0-0.7); %Basophils 0.2 % (0.0-1.0); %Lymphocytes 4.6 % (21.0-51.0); %Monocytes 1.5 % (0.0-10.0); %Neutrophils 93.4 % (42.0-75.0); Hematocrit 30.5 % (42.0-52.0); Hemoglobin 9.5 g/dL (14.0-18.0); Mean Corpuscular HGB CONC 31.1 g/dL (32.0-36.0); Mean Corpuscular Hemoglobin 29.5 pg (27.0-31.0); Mean Corpuscular Volume 94.7 fL (78.0-98.0); Mean Platelet Volume 10.7 fL (7.4-10.4); Platelet Count 242 10x3/uL (130-400); RBC Distribution Width 15.6 % (11.5-14.5); Red Blood Cell (RBC) Count 3.22 mill/uL (4.70-6.10)
[2024-04-05 12:38] LABS: Iron 39 ug/dL (65-175); Iron Binding Capacity, Total 319 mcg/dL (261-462)
[2024-04-05] MEDS ORDERED: Aspirin 81 mg Enteric Coated Tablet ONE (14:38)
[2024-04-05] MEDS ORDERED: Furosemide 20 MG (2 mL) VIAL ONE (15:12)
[2024-04-05] MEDS: Furosemide 20 MG (2 mL) VIAL SLOW IVP SCH (15:15)
[2024-04-05] MEDS: Aspirin 81 mg Enteric Coated Tablet PO SCH (15:15)
[2024-04-05] MEDS: Amlodipine 5 MG TAB PO SCH (20:05)
[2024-04-05] MEDS: Enoxaparin 40 MG (0.4 mL) SYRINGE SC SCH (20:06)
[2024-04-05] MEDS: Atorvastatin Calcium 40 MG TAB PO SCH (20:06)
[2024-04-06] MEDS: cefTRIAXone\\ROCEPHIN 2 GM in Sodium Chloride 0.9% 100 ML IVPB SCH (03:12)
[2024-04-06 04:01] LABS: #Basophils Less than 0.03 10x3/uL (0.0-0.2); #Eosinphils Less than 0.03 10x3/uL (0.0-0.7); %Eosinophils 0.1 % (0.0-10.0); %Lymphocytes 8.4 % (21.0-51.0); %Monocytes 9.6 % (0.0-10.0); %Neutrophils 81.5 % (42.0-75.0); Hematocrit 27.5 % (42.0-52.0); Hemoglobin 8.5 g/dL (14.0-18.0); Mean Corpuscular HGB CONC 30.9 g/dL (32.0-36.0); Mean Corpuscular Volume 97.2 fL (78.0-98.0); Mean Platelet Volume 11.5 fL (7.4-10.4); Platelet Count 194 10x3/uL (130-400); RBC Distribution Width 15.5 % (11.5-14.5); Red Blood Cell (RBC) Count 2.83 mill/uL (4.70-6.10)
[2024-04-06 04:23] LABS: Anion Gap 12 mmol/L (10-20); BUN (Urea Nitrogen) 30 mg/dL (8.4-25.7); Calc. Creatinine Clearance 38 mL/min (70-130); Calcium 9.5 mg/dL (7.8-10.44); Carbon Dioxide 22 mmol/L (23-31); Chloride 111 mmol/L (98-107); Estimated GFR 54; Glucose 114 mg/dL (83-110); Magnesium 2.3 mg/dL (1.6-2.6); Potassium 4.3 mmol/L (3.5-5.1); Sodium 141 mmol/L (136-145)
[2024-04-06] MEDS ORDERED: Doxycycline 100 MG in Sodium Chloride 0.9% 100 ML IVPB SCH (05:00)
[2024-04-06] MEDS ORDERED: Vancomycin 1 GM in Sodium Chloride 0.9% 250 ML 250 ML IVPB SCH (09:00)
[2024-04-06] MEDS: Vancomycin 1 GM in Premix 1 BAG IVPB SCH (10:04)
[2024-04-06] MEDS: Doxazosin Mesylate 1 MG TAB PO SCH (10:05)
[2024-04-06] MEDS: Amlodipine 5 MG TAB PO SCH (10:06)
[2024-04-06] MEDS: Amiodarone 200 MG TAB PO SCH (10:06)
[2024-04-06] MEDS: Aspirin 81 mg Enteric Coated Tablet PO SCH (10:06)
[2024-04-06] MEDS: Ipratropium/Albuterol 3 ML NEB EZPAP SCH ×2 (13:02→18:24)
[2024-04-06] MEDS ORDERED: dilTIAZem 125 MG in Sodium Chloride 0.9% 100 ML IVPB SCH (14:45)
[2024-04-06] MEDS: dilTIAZem 25 MG/5 ML VIAL SLOW IVP SCH (15:00)
[2024-04-06] MEDS: Vancomycin HCl 500 MG in Sodium Chloride 0.9% 100 ML IVPB SCH (15:50)
[2024-04-06] MEDS: Amiodarone 150 MG, Admixture Fee 1 EACH in Dextrose 5% in Water 100 ML IVPB SCH (20:21)
[2024-04-06] MEDS: Amiodarone 450 MG in Dextrose 5% in Water 250 ML IVPB SCH (20:34)
[2024-04-06] MEDS: Valsartan 80 MG TAB PO SCH (21:31)
[2024-04-06] MEDS: guaiFENesin/DM ER PO SCH (21:31)
[2024-04-06] MEDS: Enoxaparin 60 MG (0.6 mL) SYRINGE SC SCH (21:31)
[2024-04-07 04:35] LABS: #Basophils Less than 0.03 10x3/uL (0.0-0.2); %Basophils 0.2 % (0.0-1.0); %Eosinophils 0.5 % (0.0-10.0); %Lymphocytes 8.1 % (21.0-51.0); %Monocytes 6.7 % (0.0-10.0); Hematocrit 26.9 % (42.0-52.0); Hemoglobin 8.7 g/dL (14.0-18.0); Mean Corpuscular HGB CONC 32.3 g/dL (32.0-36.0); Mean Corpuscular Hemoglobin 30.2 pg (27.0-31.0); Mean Corpuscular Volume 93.4 fL (78.0-98.0); Mean Platelet Volume 10.5 fL (7.4-10.4); Platelet Count 204 10x3/uL (130-400); RBC Distribution Width 15.1 % (11.5-14.5); Red Blood Cell (RBC) Count 2.88 mill/uL (4.70-6.10)
[2024-04-07 04:58] LABS: Anion Gap 13 mmol/L (10-20); BUN (Urea Nitrogen) 24 mg/dL (8.4-25.7); Calc. Creatinine Clearance 55 mL/min (70-130); Calcium 9.1 mg/dL (7.8-10.44); Carbon Dioxide 22 mmol/L (23-31); Chloride 111 mmol/L (98-107); Estimated GFR 83; Glucose 83 mg/dL (83-110); Magnesium 2.2 mg/dL (1.6-2.6); Potassium 3.7 mmol/L (3.5-5.1); Sodium 142 mmol/L (136-145)
[2024-04-07 04:59] LABS: Vancomycin, Random 4.5 ug/mL (See Comment)
[2024-04-07] MEDS: Vancomycin 1 GM in Premix 1 BAG IVPB SCH (06:45)
[2024-04-07] MEDS: Acetaminophen 325 MG TAB PO PRN (09:02)
[2024-04-07] MEDS: Mometasone 200 MCG/Formoterol 5 MCG 120 PUFF INHALER INH SCH (18:27)
[2024-04-07] MEDS: Azithromycin 500 MG in Sodium Chloride 0.9% 250 ML 250 ML IVPB SCH (22:39)
[2024-04-08 04:40] LABS: #Basophils Less than 0.03 10x3/uL (0.0-0.2); %Basophils 0.1 % (0.0-1.0); %Eosinophils 0.9 % (0.0-10.0); %Lymphocytes 10.2 % (21.0-51.0); %Monocytes 9.6 % (0.0-10.0); %Neutrophils 78.9 % (42.0-75.0); Hematocrit 29.5 % (42.0-52.0); Hemoglobin 9.3 g/dL (14.0-18.0); Mean Corpuscular HGB CONC 31.5 g/dL (32.0-36.0); Mean Corpuscular Hemoglobin 30.3 pg (27.0-31.0); Mean Corpuscular Volume 96.1 fL (78.0-98.0); Mean Platelet Volume 11.4 fL (7.4-10.4); Platelet Count 192 10x3/uL (130-400); RBC Distribution Width 15.3 % (11.5-14.5); Red Blood Cell (RBC) Count 3.07 mill/uL (4.70-6.10)
[2024-04-08 05:02] LABS: Anion Gap 12 mmol/L (10-20); BUN (Urea Nitrogen) 27 mg/dL (8.4-25.7); Calc. Creatinine Clearance 49 mL/min (70-130); Carbon Dioxide 21 mmol/L (23-31); Chloride 110 mmol/L (98-107); Estimated GFR 84; Glucose 89 mg/dL (83-110); Magnesium 2.2 mg/dL (1.6-2.6); Potassium 3.7 mmol/L (3.5-5.1); Sodium 139 mmol/L (136-145)
[2024-04-08 05:08] LABS: Vancomycin, Random 8.8 ug/mL (See Comment)
[2024-04-08] MEDS ORDERED: Sodium Bicarbonate 2.5 MEQ/5 ML SDV ONE (10:20)
[2024-04-08] MEDS ORDERED: Lidocaine 1% PF 5 ML VIAL ONE (10:20)
[2024-04-08] MEDS: Carvedilol 6.25 MG TAB PO SCH (18:14)
[2024-04-08] MEDS: Amoxicillin/Potassium Clav 875 MG TAB PO SCH (20:32)
[2024-04-08] MEDS: Amiodarone 200 MG TAB PO SCH (20:35)
[2024-04-09] MEDS: Isosorbide Mononitrate 30 MG ER.TAB PO SCH (08:21)
[2024-04-09] MEDS ORDERED: Amiodarone 200 MG TAB PO SCH (09:00)
[2024-04-09 12:20] VITALS: BMI 16.9
[2024-04-10] MEDS: Carvedilol 6.25 MG TAB PO SCH ×2 (09:35→17:35)
[2024-04-11 05:16] LABS: Anion Gap 12 mmol/L (10-20); BUN (Urea Nitrogen) 27 mg/dL (8.4-25.7); Calc. Creatinine Clearance 48 mL/min (70-130); Calcium 9.3 mg/dL (7.8-10.44); Carbon Dioxide 24 mmol/L (23-31); Chloride 111 mmol/L (98-107); Estimated GFR 83; Glucose 99 mg/dL (83-110); Potassium 4.1 mmol/L (3.5-5.1); Sodium 143 mmol/L (136-145)
[2024-04-11] MEDS: Valsartan 80 MG TAB PO SCH ×2 (12:10→20:40)
[2024-04-12 05:19] LABS: #Basophils Less than 0.03 10x3/uL (0.0-0.2); #Eosinphils Less than 0.03 10x3/uL (0.0-0.7); %Basophils 0.5 % (0.0-1.0); %Eosinophils 0.5 % (0.0-10.0); %Lymphocytes 12.9 % (21.0-51.0); %Monocytes 16.1 % (0.0-10.0); %Neutrophils 69.3 % (42.0-75.0); Hemoglobin 7.6 g/dL (14.0-18.0); Mean Corpuscular HGB CONC 31.7 g/dL (32.0-36.0); Mean Corpuscular Hemoglobin 29.3 pg (27.0-31.0); Mean Corpuscular Volume 92.7 fL (78.0-98.0); Platelet Count 188 10x3/uL (130-400); RBC Distribution Width 14.9 % (11.5-14.5); Red Blood Cell (RBC) Count 2.59 mill/uL (4.70-6.10)
[2024-04-12 05:40] LABS: Anion Gap 15 mmol/L (10-20); BUN (Urea Nitrogen) 35 mg/dL (8.4-25.7); Calc. Creatinine Clearance 43 mL/min (70-130); Calcium 9.2 mg/dL (7.8-10.44); Carbon Dioxide 22 mmol/L (23-31); Chloride 110 mmol/L (98-107); Estimated GFR 75; Glucose 96 mg/dL (83-110); Potassium 3.9 mmol/L (3.5-5.1); Sodium 143 mmol/L (136-145)
[2024-04-12] MEDS: Ipratropium/Albuterol 3 ML NEB NEB PRN (23:17)
[2024-04-13 05:14] LABS: #Basophils Less than 0.03 10x3/uL (0.0-0.2); #Eosinphils Less than 0.03 10x3/uL (0.0-0.7); %Basophils 0.2 % (0.0-1.0); %Eosinophils 0.4 % (0.0-10.0); %Lymphocytes 12.8 % (21.0-51.0); %Monocytes 8.6 % (0.0-10.0); %Neutrophils 77.4 % (42.0-75.0); Hematocrit 22.2 % (42.0-52.0); Mean Corpuscular HGB CONC 31.5 g/dL (32.0-36.0); Mean Corpuscular Hemoglobin 28.8 pg (27.0-31.0); Mean Corpuscular Volume 91.4 fL (78.0-98.0); Mean Platelet Volume 12.3 fL (7.4-10.4); Platelet Count 170 10x3/uL (130-400); RBC Distribution Width 14.7 % (11.5-14.5); Red Blood Cell (RBC) Count 2.43 mill/uL (4.70-6.10)
[2024-04-13 05:18] LABS: Anion Gap 12 mmol/L (10-20); BUN (Urea Nitrogen) 47 mg/dL (8.4-25.7); Calc. Creatinine Clearance 39 mL/min (70-130); Carbon Dioxide 22 mmol/L (23-31); Chloride 108 mmol/L (98-107); Estimated GFR 66; Glucose 102 mg/dL (83-110); Sodium 138 mmol/L (136-145)
[2024-04-13 08:07] VITALS: TEMP 97.8
[2024-04-13 12:19] VITALS: BP 112/61
[2024-04-16] MEDS ORDERED: Amiodarone 200 MG TAB PO SCH (09:00)
== END 2024-04-13 18:55 | DRG 177 ==
LOC: ERS 02:12 → ERHOLD 04:59 → 2SE 16:16
PROVIDERS: ADMIT Internal Medicine; ATTEND Internal Medicine
DX: J69.0 Pneumonitis due to inhalation of food and vomit (principal); I50.23 Acute on chronic systolic (congestive) heart failure; J96.01 Acute respiratory failure with hypoxia; I13.0 Hypertensive heart and chronic kidney disease with heart failure and stage 1 through stage 4 chronic kidney disease, or unspecified chronic kidney disease; N39.0 Urinary tract infection, site not specified; E44.0 Moderate protein-calorie malnutrition; R64 Cachexia; Z68.1 Body mass index [BMI] 19.9 or less, adult; D64.9 Anemia, unspecified; I48.0 Paroxysmal atrial fibrillation; N18.30 Chronic kidney disease, stage 3 unspecified; F17.210 Nicotine dependence, cigarettes, uncomplicated; K21.9 Gastro-esophageal reflux disease without esophagitis; N40.0 Benign prostatic hyperplasia without lower urinary tract symptoms; Z79.899 Other long term (current) drug therapy; Z79.82 Long term (current) use of aspirin; Z90.49 Acquired absence of other specified parts of digestive tract; B96.20 Unspecified Escherichia coli [E. coli] as the cause of diseases classified elsewhere; F03.90 Unspecified dementia, unspecified severity, without behavioral disturbance, psychotic disturbance, mood disturbance, and anxiety; Z66 Do not resuscitate; R13.12 Dysphagia, oropharyngeal phase
CPT/HCPCS: 36415; 71045; 74230; 80048; 80053; 80202; 80306; 80307; 81001; 82607; 83540; 83550; 83605; 83735; 83880; 84145; 84484; 85025; 87040; 87077; 87086; 87149; 87186; 93005; 93010; 93306; 94640; 94664; 94760; 96374; 96375; J0282; J0456; J0696; J1650; J1940; J2930; J3370; J3370-JW; J3475; J7050; J7070; J7620